=== PATIENT | female | born 1975 | race Caucasian/White ===

== ENCOUNTER → 2023-09-07 15:32 | Outpatient (REF) | payer OTHER, SELFPAY | LOC: HWRAD 15:32 | PROVIDERS: ATTENDING PHYSICIAN Orthopaedic Surgery Orthopaedic Surgery of the Spine; FAMILY PHYSICIAN Student in an Organized Health Care Education/Training Program | DX: M54.2 Cervicalgia (principal) | CPT/HCPCS: 72050; 72125 ==

== ENCOUNTER → 2023-11-13 07:44 | Outpatient (REF) | payer OTHER, SELFPAY | LOC: PAVMRI 07:44 | PROVIDERS: ATTENDING PHYSICIAN Specialist; FAMILY PHYSICIAN Student in an Organized Health Care Education/Training Program | DX: G11.9 Hereditary ataxia, unspecified (principal) | CPT/HCPCS: 70553; A9575 ==

== ENCOUNTER → 2023-12-14 09:37 | Outpatient (REF) | payer OTHER, SELFPAY | LOC: MRI 09:37 | PROVIDERS: ATTENDING PHYSICIAN Physician Assistant Surgical; FAMILY PHYSICIAN Student in an Organized Health Care Education/Training Program; REFERRING PHYSICIAN Obstetrics & Gynecology Gynecologic Oncology | DX: N92.6 Irregular menstruation, unspecified (principal); R19.00 Intra-abdominal and pelvic swelling, mass and lump, unspecified site | CPT/HCPCS: 72197; A9575 ==

== ENCOUNTER 2023-12-26 06:21 | Day surgery (SDC) | payer OTHER, SELFPAY ==
[2023-12-26 09:21] VITALS: BMI 18.8
[2023-12-26 09:23] VITALS: BMI 18.8
[2023-12-26 09:24] VITALS: BP 115/76
[2023-12-26] MEDS: TYLENOL 1000 MG PO (09:45)
[2023-12-26] MEDS: NEURONTIN 300 MG PO (09:45)
[2023-12-26] MEDS: CELEBREX 200 MG PO (09:45)
[2023-12-26] MEDS: HEPARIN 5000 UNITS SC (09:46)
[2023-12-26] MEDS: NORMOSOL-R/PLASMALYTE-A 1000 IV (09:47)
--- NOTE | 2023-12-26 12:44 | OR.RPT ---
Operative Report
Operative Report
Date of procedure December 26, 2023
Preoperative diagnosis abnormal uterine bleeding, prolapsing uterine polyp
Postoperative diagnosis same pending final pathology
Procedure: Diagnostic hysteroscopy, resection of cervical polyp, MyoSure resection of endometrial polyp, fractional dilation and curettage
Surgeon: Bandar Garcia
Assist: Felicity Clark PA-C
Anesthesia General LMA intubation, and paracervical block
Estimated blood loss 25 cc
Complication: None
Procedure in detail
The patient is brought to the operating room and placed in supine position, general anesthesia was administered LMA intubation was completed. She was placed in lithotomy position using yellowfin stirrups and prepped on the vagina perineum and upper
thighs she was draped. She received Ancef for prophylaxis. Timeout procedure was completed, weighted speculum was placed in the posterior fornix, cervix appears to be dilated to approximately 2 cm with a prolapsing mass within it anterior lip of
the cervix was grasped with single-tooth tenaculum. We injected 5 cc 1% lidocaine at both the right and left side of the cervix approximately at 5 and 7:00 paracervical tissue. Next the prolapsing mass was grasped with a ring forceps and twisted
on its stalk until it was detached and this was submitted as endocervical mass. Next we sounded the upper endocervix and uterine cavity and sounded to 8.5 cm. The placed a hysteroscope into the uterine cavity and realized that there is residual
polyp stuck in the endometrial cavity. Bilateral tubal ostia were visualized. MyoSure lite resectoscope was used to remove the polyp down to its base. After this was removed sharp curettage of endocervix was performed. Sharp curettage of the
endometrial cavity was performed and these tissues were submitted to pathology in separate specimens. We cauterized the bed of the dilated endocervix and placed some Monsel solution within it. Good hemostasis was present. All instruments were
removed patient was awakened and extubated and returned back to recovery room stable awake and extubated condition. Counts of laps instruments needle was correct x 2. I was present and scrubbed for entire procedure as dictated above.
[2023-12-26 12:45] VITALS: BP 115/56
[2023-12-26] MEDS: DILAUDID 0.5 MG IV ×3 (12:58→13:32)
[2023-12-26] MEDS: DILAUDID 0.25 MG IV (13:49)
[2023-12-26 14:24] VITALS: BP 114/49
[2023-12-26 14:55] VITALS: BP 121/77
[2023-12-26] MEDS: ZOFRAN 4 MG IV (14:59)
[2023-12-26] MEDS: COMPAZINE 5 MG IV (15:35)
[2023-12-26 15:50] VITALS: BP 116/75
== END 2023-12-26 16:31 | disposition home or self-care (01) ==
LOC: SDS 06:21
PROVIDERS: ATTENDING PHYSICIAN Obstetrics & Gynecology Gynecologic Oncology
DX: N84.0 Polyp of corpus uteri (principal); N85.8 Other specified noninflammatory disorders of uterus; N93.8 Other specified abnormal uterine and vaginal bleeding
CPT/HCPCS: 58558; 88305; 88341; 88360